=== PATIENT | female | born 1965 | race Caucasian/White ===

== ENCOUNTER 2020-07-25 20:57 | Emergency (ER) | payer OTHER ==
[~2020-07-25] VITALS: Ht 167.6 cm; Wt 77.1 kg
[2020-07-25] MEDS ORDERED: LIALDA1.2 GM PO (21:18)
== END 2020-07-25 22:49 | disposition home or self-care (01) ==
LOC: ED 20:57
DX: R04.0 Epistaxis (principal); Z88.0 Allergy status to penicillin; Z79.899 Other long term (current) drug therapy
CPT/HCPCS: 85025; 85610; 85730; 99283